=== PATIENT | male | born 1965 | race Caucasian/White ===

== ENCOUNTER 2018-06-30 09:56 | Day surgery (SDC) | payer OTHER ==
[~2018-06-30] VITALS: Ht 167.6 cm; Wt 82.9 kg
[~2018-06-30 09:56] MED LIST: CIPR500T4 PO; DOCU-144 PO; GLIM2TAB PO; GLIM4TAB PO; HYDR-3498 PO; LOSA25TA12 PO; LOSARTAN PO; METF100010 PO; METO-335 PO; PRAV40TA76 PO; PRAV80TA27 PO; RANI150T5 PO; SITA100T11 PO
[2018-06-30 11:27] VITALS: BP 135/84; PULSE 84; RESP 18
[2018-06-30 11:34] VITALS: Ht 167.6 cm; Wt 82.9 kg
[2018-06-30] MEDS ORDERED: MIDAZOLAM 1 MG/ML 2 ML INJ ONE ×3 (12:31→12:32)
[2018-06-30] MEDS ORDERED: FENTAnyl 50 MCG/ML VIAL ONE (12:32)
[2018-06-30 12:50] VITALS: BP 158/98; RESP 16
== END 2018-06-30 13:51 | disposition home or self-care (01) ==
LOC: GIL 09:56
PROVIDERS: ATTEND Internal Medicine Gastroenterology
DX: K92.1 Melena (principal); K64.8 Other hemorrhoids; D12.6 Benign neoplasm of colon, unspecified; E11.9 Type 2 diabetes mellitus without complications; I10 Essential (primary) hypertension
CPT/HCPCS: 45380; 82962; 88305; J2250; J3010; Z7610